=== PATIENT | female | born 1990 | race Caucasian/White ===

== ENCOUNTER 2018-03-20 00:07 | Emergency (ER) | payer MEDICAID ==
[~2018-03-20] VITALS: Ht 175.3 cm; Wt 59.4 kg
[2018-03-20 00:24] VITALS: Ht 175.3 cm; Wt 59.4 kg
[2018-03-20 05:00] VITALS: BP 107/66
[2018-03-20 05:08] LABS: UA SPECIFIC GRAVITY >=1.030 (1.005-1.035); microscopic required? YES; urine erythrocyte NEGATIVE (NEGATIVE)
== END 2018-03-20 05:00 | disposition home or self-care (01) ==
LOC: ED 00:07
PROVIDERS: Emergency Medicine
DX: N39.0 Urinary tract infection, site not specified (principal)

== ENCOUNTER 2019-02-01 17:51 | Emergency (ER) | payer MEDICAID ==
[2019-02-01 18:33] VITALS: Ht 175.3 cm
[2019-02-01 20:41] LABS: BASOPHIL % 0.3 % (0-2); PLATELET COUNT 167 x10^3mcL (130-400); RED CELL DISTRIBUTION WIDTH 12.6 % (11.5-14.5)
[2019-02-01 20:53] LABS: CALCIUM 9.2 mg/dL (8.5-10.1); CARBON DIOXIDE 25.2 mmol/L (21-32); CHLORIDE SERUM 103 mmol/L (98-107); CREATININE SERUM 0.7 mg/dL (0.6-1.0); GFR1 > 60 mL/min; GLUCOSE SERUM 107 mg/dL (74-106); POTASSIUM SERUM 3.8 mmol/L (3.5-5.1); SODIUM SERUM 139 mmol/L (136-145)
[2019-02-01 20:55] LABS: ALBUMIN 4.5 g/dL (3.4-5.0); ALKALINE PHOSPHATASE 58 U/L (46-116); ALT/SGPT 13 U/L (14-59); AST/SGOT 10 U/L (15-37); BILIRUBIN TOTAL 0.67 mg/dL (0.20-1.00); LIPASE 175 IU/L (73-393); TOTAL PROTEIN, SERUM 8.2 g/dL (6.4-8.2)
[2019-02-01 23:38] VITALS: BP 114/62
== END 2019-02-01 23:38 | disposition home or self-care (01) ==
LOC: ED 17:51
PROVIDERS: Emergency Medicine
DX: N39.0 Urinary tract infection, site not specified (principal); Z98.890 Other specified postprocedural states
CPT/HCPCS: 36415; J1885

== ENCOUNTER 2019-02-15 17:48 | Emergency (ER) | payer MEDICAID ==
[~2019-02-15] VITALS: Ht 175.3 cm; Wt 59.0 kg
[2019-02-15 18:08] VITALS: Ht 175.3 cm; Wt 59.0 kg
[2019-02-15 18:44] LABS: BASOPHIL % 0.3 % (0-2); PLATELET COUNT 200 x10^3mcL (130-400); RED CELL DISTRIBUTION WIDTH 12.7 % (11.5-14.5)
[2019-02-15 18:53] LABS: CALCIUM 9.3 mg/dL (8.5-10.1); CARBON DIOXIDE 27.7 mmol/L (21-32); CHLORIDE SERUM 103 mmol/L (98-107); CREATININE SERUM 0.7 mg/dL (0.6-1.0); GFR1 > 60 mL/min; GLUCOSE SERUM 101 mg/dL (74-106); POTASSIUM SERUM 3.5 mmol/L (3.5-5.1); SODIUM SERUM 139 mmol/L (136-145)
[2019-02-15 18:58] LABS: ALKALINE PHOSPHATASE 52 U/L (46-116); ALT/SGPT 13 U/L (14-59); AST/SGOT 8 U/L (15-37); BILIRUBIN TOTAL 0.48 mg/dL (0.20-1.00); TOTAL PROTEIN, SERUM 7.6 g/dL (6.4-8.2)
[2019-02-15 20:28] LABS: microscopic required? NO
[2019-02-15 20:47] LABS: UA SPECIFIC GRAVITY <=1.005 (1.005-1.035); urine erythrocyte NEGATIVE (NEGATIVE)
[2019-02-15 22:05] VITALS: BP 111/66
== END 2019-02-15 22:05 | disposition home or self-care (01) ==
LOC: ED 17:48
PROVIDERS: Emergency Medicine
DX: R10.31 Right lower quadrant pain (principal); R30.0 Dysuria; R50.9 Fever, unspecified
CPT/HCPCS: J2270; J2405; J7030